=== PATIENT | female | born 1955 | race American Indian/Alaskan Native ===

== ENCOUNTER 2016-12-11 11:50 | Outpatient (CLI) | payer MEDICARE, OTHER ==
--- NOTE | 2016-12-11 13:22 | XRay Report ---
BILATERAL HIPS AND AP PELVIS THREE VIEWS: 12/11/16 11:58:00 CLINICAL: Bilateral hip pain FINDINGS: Right: No fracture or dislocation. Moderate osteoarthritis with superolateral joint space narrowing and acetabular eburnation. Normal soft tissues. Left: No fracture or dislocation. Moderate osteoarthritis with superolateral joint space narrowing and acetabular eburnation.Normal soft tissues. The pelvic bones are intact.Normal SI joints. IMPRESSION: Moderate bilateral osteoarthritis of the hips.
--- NOTE | 2016-12-11 13:23 | XRay Report ---
Lumbar spine: Pain. AP and lateral views demonstrates diminished mineralization the bones. The vertebral height, alignment, and interspaces are preserved. Impression: Decreased bone mineralization. No acute finding.
== END 2016-12-11 11:51 | disposition home or self-care (01) ==
LOC: SPVIMAG 11:50
DX: M16.0 Bilateral primary osteoarthritis of hip (principal)
CPT/HCPCS: 72100; 73521

== ENCOUNTER 2018-03-03 14:07 | Outpatient (CLI) | payer MEDICARE, OTHER ==
--- NOTE | 2018-03-03 14:57 | Mammography Report ---
BILATERAL MAMMOGRAM: FINDINGS: The breast tissue is heterogeneously dense, which could obscure detection of small masses (approximately 50%-75% glandular). No mass, distortion, suspicious calcification, or skin change is seen. No significant change identified when compared to prior exam in November 2015. CAD was utilized. IMPRESSION: Negative mammogram. There is no mammographic evidence of malignancy. RECOMMENDATION: Follow-up per ACS guidelines. BI-RADS CATEGORY: 1 = Negative ACR BI-RADS MAMMOGRAPHIC CODES: 0 = Needs additional imaging evaluation; 1 = Negative; 2 = Benign; 3 = Probably benign; 4 = Suspicious; 5 = Malignant; 6 = Known biopsy-proven malignancy COMMENT: 1. Dense breast tissue, i.e., adenosis, fibrocystic changes, etc., may obscure an underlying neoplasm. 2. Approximately 10% of cancers are not detected with mammography. 3. A negative mammography report should not delay biopsy if a clinically suspicious mass is present. COMMENT: Patient follow-up letters are generated in [employer]
== END 2018-03-03 14:08 | disposition home or self-care (01) ==
LOC: SPVWC 14:07
DX: Z12.31 Encounter for screening mammogram for malignant neoplasm of breast (principal)
CPT/HCPCS: 77067

== ENCOUNTER 2019-03-06 11:58 | Outpatient (CLI) | payer MEDICARE, OTHER ==
--- NOTE | 2019-03-06 14:06 | Mammography Report ---
BILATERAL MAMMOGRAM: FINDINGS: The breast tissue is heterogeneously dense, which could obscure detection of small masses (approximately 50%-75% glandular). No mass, distortion, suspicious calcification, or skin change is seen. There are no significant changes Compared to prior exams dating back to November 2015. CAD was utilized. IMPRESSION: Negative mammogram. There is no mammographic evidence of malignancy. RECOMMENDATION: Follow-up per ACS guidelines. BI-RADS CATEGORY: 1 = Negative ACR BI-RADS MAMMOGRAPHIC CODES: 0 = Needs additional imaging evaluation; 1 = Negative; 2 = Benign; 3 = Probably benign; 4 = Suspicious; 5 = Malignant; 6 = Known biopsy-proven malignancy COMMENT: 1. Dense breast tissue, i.e., adenosis, fibrocystic changes, etc., may obscure an underlying neoplasm. 2. Approximately 10% of cancers are not detected with mammography. 3. A negative mammography report should not delay biopsy if a clinically suspicious mass is present. COMMENT: Patient follow-up letters are generated in [employer].
== END 2019-03-06 11:59 | disposition home or self-care (01) ==
LOC: SPVWC 11:58
DX: Z12.31 Encounter for screening mammogram for malignant neoplasm of breast (principal)
CPT/HCPCS: 77067

== ENCOUNTER 2020-04-02 13:17 | Outpatient (CLI) | payer MEDICARE, OTHER ==
--- NOTE | 2020-04-02 14:08 | Mammography Report ---
DIGITAL DIAGNOSTIC MAMMOGRAM WITH CAD, 04/02/2020 INDICATION: Possible architectural distortion in the left breast on screening mammography. ABNORMAL M AMMOGRAM TECHNIQUE: Digital left mammographic imaging was performed. Spot compression views were obtained. This examination was interpreted with the benefit of Computer-aided Detection analysis. COMPARISON: 03/07/20. FINDINGS: Breast Density: The breasts are heterogeneously dense, which may obscure small masses. There is no evidence of dominant mass, suspicious calcifications or architectural distortion in the l eft breast. No persistent architectural distortion is seen on spot compression. No change has occurre d since 03/06/19. IMPRESSION: No mammographic evidence of malignancy. Follow up recommendation: Routine yearly BI-RADS Category 1: Negative. A "normal" or negative report should not discourage follow up or biopsy of a clinically significant f inding. A written summary of these findings will be mailed to the patient. The patient will be entered into a mammography reporting system which will generate a reminder letter for the patient's next appointmen t at the appropriate interval. According to the [employer], yearly mammograms are recommended starting at age 40 and continuing as long as a woman is in good health. Breast MRI is recommended for women with an tiff roximately 20-25% or greater lifetime risk of breast cancer, including women with a strong family his tory of breast or ovarian cancer and women who have been treated for Hodgkin's disease. Signer Name: Neville Wayne MD Signed: 04/02/2020 2:03 PM Workstation Name: [id number]
== END 2020-04-02 13:18 | disposition home or self-care (01) ==
LOC: SPVWC 13:17
PROVIDERS: ATTEND Urology
DX: R92.8 Other abnormal and inconclusive findings on diagnostic imaging of breast (principal)

== ENCOUNTER 2021-03-18 12:59 | Outpatient (CLI) | payer MEDICARE, OTHER ==
--- NOTE | 2021-03-18 15:05 | Mammography Report ---
DIGITAL SCREENING MAMMOGRAM WITH CAD, 03/18/2021 INDICATION: Routine screening mammography. TECHNIQUE: Digital bilateral 2D mammography was obtained in the craniocaudal and mediolateral obliq ue projections. This examination was interpreted with the benefit of Computer-Aided Detection analysi s. COMPARISON: 03/07/2020, 03/06/2019 FINDINGS: Breast Density: The breasts are heterogeneously dense, which may obscure small masses. There is no evidence of dominant mass, suspicious calcifications or architectural distortion in the r ight breast. Small asymmetry upper outer quadrant left breast posterior depth. Spot compression views with possible ultrasound is recommended. IMPRESSION: Follow up recommendation: Special View: Spot BI-RADS Category 0: Incomplete. Needs additional imaging evaluation and/or prior mammograms for mark rison. A "normal" or negative report should not discourage follow up or biopsy of a clinically significant f inding. A written summary of these findings will be mailed to the patient. The patient will be entered into a mammography reporting system which will generate a reminder letter for the patient's next appointmen t at the appropriate interval. The [employer] recommends yearly mammograms starting at age 40 and continuing as l christina as a woman is in good health. Breast MRI is recommended for women with an approximate 20-25% or greater lifetime risk of breast cancer, including women with a strong family history of breast or ova lazaro cancer or who have been treated for Hodgkin's disease. Signer Name: Dwayne Huang MD Signed: 03/18/2021 3:00 PM Workstation Name: [id number]
== END 2021-03-18 13:00 | disposition home or self-care (01) ==
LOC: SPVWC 12:59
PROVIDERS: ATTEND Urology
DX: Z12.31 Encounter for screening mammogram for malignant neoplasm of breast (principal)
CPT/HCPCS: 77067

== ENCOUNTER 2021-05-28 13:48 | Outpatient (CLI) | payer MEDICARE, OTHER ==
--- NOTE | 2021-05-28 14:27 | Mammography Report ---
DIGITAL DIAGNOSTIC MAMMOGRAM WITH CAD , 05/28/2021 CLINICAL INFORMATION / INDICATION: Abnormal left screening mammogram. R92.0 MICROCALCIFICATIONS R92.8 ABNORMAL MAMMO TECHNIQUE: Digital left mammographic imaging was performed. Spot compression views were obtained. This examination was interpreted with the benefit of Computer-aided Detection analysis. COMPARISON: Numerous prior mammograms including 03/18/2021 through 11/05/2014 FINDINGS: Breast Density: The breasts are heterogeneously dense, which may obscure small masses. No dominant mass, suspicious calcifications or architectural distortion in the left breast. Spot comp ression views of the small focal asymmetry in the upper outer quadrant mostly resolved with spot comp ression but appears unchanged mammographically compared to the 2015 mammogram and is therefore consid ered benign. IMPRESSION: No mammographic evidence of malignancy. Follow up recommendation: Routine yearly BI-RADS Category 2: Benign. A "normal" or negative report should not discourage follow up or biopsy of a clinically significant f inding. A written summary of these findings will be mailed to the patient. The patient will be entered into a mammography reporting system which will generate a reminder letter for the patient's next appointmen t at the appropriate interval. According to the [employer], yearly mammograms are recommended starting at age 40 and continuing as long as a woman is in good health. Breast MRI is recommended for women with an tiff roximately 20-25% or greater lifetime risk of breast cancer, including women with a strong family his tory of breast or ovarian cancer and women who have been treated for Hodgkin's disease. Signer Name: Jillian Patrick MD Signed: 05/28/2021 2:22 PM Workstation Name: [id number]
== END 2021-05-28 13:49 | disposition home or self-care (01) ==
LOC: SPVWC 13:48
PROVIDERS: ATTEND Student in an Organized Health Care Education/Training Program
DX: R92.8 Other abnormal and inconclusive findings on diagnostic imaging of breast (principal); R92.0 Mammographic microcalcification found on diagnostic imaging of breast